=== PATIENT | male | born 1950 | race Caucasian/White ===

== ENCOUNTER 2020-11-01 11:53 | Outpatient (CLI) | payer MEDICARE ==
--- NOTE | 2020-11-01 14:06 | ULT ---
Focused ultrasound of the left popliteal fossa: 11/01/2020 COMPARISON: None HISTORY: Evaluate for a Bakers cyst TECHNIQUE: Multiplanar grayscale sonographic imaging of the left popliteal fossa obtained. Imaging in cludes Doppler interrogation with color flow and spectral analysis of the vascular structures in the left popliteal fossa. FINDINGS: Provided imaging demonstrates no discrete mass or popliteal fossa cyst. The arterial and ve nous structures in this region appear patent. This study was not performed to assess for DVT. IMPRESSION: Focused ultrasound demonstrates no evidence for popliteal fossa cyst. This study was not performed to assess for DVT. If there is concern for DVT, venous Doppler ultrasound of the left lower extremity would be required. If symptoms persist, correlation with radiographs and potentially, MRI, may be helpful.
--- NOTE | 2020-11-01 15:24 | ULT ---
RENAL ULTRASOUND: 11/01/20 HISTORY: Flank pain. Right kidney measures 12 cm in length. Right kidney is unremarkable with no hydronephrosis or mass le fawad. There is cortical thinning with cortical echogenicity maintained. Left kidney measures 12 cm in length. No hydronephrosis. Cortical thinning. Cortical echogenicity is preserved. Urinary bladder is mildly distended. Mild bladder wall thickening. There is evidence of pr ostatic hypertrophy impinging on the floor of the bladder. There is abnormal echogenicity in the floo r of the bladder with a mass-like appearance. Recommend urologic consultation and consider cystoscopy . IMPRESSION: 1. Unremarkable renal ultrasound. 2. Images of the bladder show prostatic hypertrophy. Abnormal echogenicity in the floor of the b ladder may represent prostate encroaching into the floor of the bladder, although mucosal lesion shou ld be excluded. POS: [facility]
== END 2020-11-01 11:54 | disposition home or self-care (01) ==
LOC: BICULT 11:53
PROVIDERS: ATTEND Family Medicine
DX: M25.562 Pain in left knee (principal); R10.9 Unspecified abdominal pain
CPT/HCPCS: 76770; 76999

== ENCOUNTER 2022-02-06 09:53 | Outpatient (CLI) | payer MEDICARE | END 2022-02-06 09:54 | disposition home or self-care (01) | LOC: BICRAD 09:53 | PROVIDERS: ATTEND Nurse Practitioner Family | DX: R10.9 Unspecified abdominal pain (principal); N20.0 Calculus of kidney | CPT/HCPCS: 74019 ==

== ENCOUNTER 2022-03-17 08:44 | Outpatient (CLI) | payer MEDICARE | END 2022-03-17 08:45 | disposition home or self-care (01) | LOC: BICCT 08:44 | PROVIDERS: ATTEND Family Medicine | DX: N20.0 Calculus of kidney (principal); N40.0 Benign prostatic hyperplasia without lower urinary tract symptoms | CPT/HCPCS: 74176 ==

== ENCOUNTER 2022-05-29 15:42 | Emergency (ER) | payer MEDICARE ==
[~2022-05-29 15:42] MED LIST: Iopamidol-370 76% 500 ML 1 ML ONE
[2022-05-29 17:22] LABS: #Basophils 0.1 thou/uL (0.0-0.2); #Eosinphils 0.5 thou/uL (0.0-0.7); #Lymphocytes 2.7 thou/uL (1.20-3.40); #Monocytes 0.7 thou/uL (0.11-0.59); #Neutrophils 6.8 thou/uL (1.40-6.50); %Basophils 0.8 % (0.0-1.0); %Monocytes 6.1 % (0.0-10.0); %Neutrophils 63.1 % (42.0-75.0); Mean Corpuscular Hemoglobin 29.8 pg (27.0-31.0); Mean Corpuscular Volume 90.5 fL (78.0-98.0); Mean Platelet Volume 7.4 fL (7.4-10.4); Platelet Count 254 thou/uL (130-400); RBC Distribution Width 11.9 % (11.5-14.5); White Blood Cell (WBC) Count 10.8 thou/uL (4.8-10.8)
[2022-05-29 17:44] LABS: ALT (SGPT) 23 U/L (8-55); AST (SGOT) 21 U/L (5-34); Albumin 4.3 g/dL (3.4-4.8); Alkaline Phosphatase 70 U/L (40-110); Anion Gap 14 mmol/L (10-20); BUN (Urea Nitrogen) 14 mg/dL (8.4-25.7); Bilirubin, Total 0.5 mg/dL (0.2-1.2); Calc. Creatinine Clearance 0 mL/min (70-130); Calcium 9.5 mg/dL (7.8-10.44); Carbon Dioxide 23 mmol/L (23-31); Chloride 104 mmol/L (98-107); Estimated GFR 67; Globulin 3.4 g/dL (2.4-3.5); Glucose 130 mg/dL (83-110); Lipase 41 U/L (8-78); Potassium 4.4 mmol/L (3.5-5.1); Protein, Total 7.7 g/dL (5.8-8.1); Sodium 137 mmol/L (136-145)
== END 2022-05-29 20:53 | disposition home or self-care (01) ==
LOC: ERS 15:42
DX: R19.00 Intra-abdominal and pelvic swelling, mass and lump, unspecified site (principal)
CPT/HCPCS: 36415; 74177; 80053; 83605; 83690; 85025; 94760; Q9967